=== PATIENT | female | born 1960 | race Asian ===

== ENCOUNTER 2017-05-20 06:36 | Day surgery (SDC) | payer OTHER ==
[~2017-05-20] VITALS: Ht 149.9 cm; Wt 63.8 kg
[~2017-05-20 06:36] MED LIST: DICLOFENAC SODIUM 0.1% 2.5 ML OPHTHALMIC SOLUTION OS ONE; MOXIFLOXACIN HCL 0.5% 3 ML OPHTHALMIC SOLUTION OS ONE; RINGERS SOLUTION,LACTATED 500 ML IV ONE
[2017-05-20] MEDS ORDERED: FentaNYL CITRATE-PF 100 MCG/2 ML VIAL IVP ONE (06:37)
[2017-05-20] MEDS ORDERED: LIDOCAINE HCL/PF 1% 2 ML VIAL IM ONE (06:37)
[2017-05-20] MEDS ORDERED: MIDAZOLAM HCL 2 MG/2 ML VIAL IVP ONE (06:37)
[2017-05-20] MEDS ORDERED: POVIDONE-IODINE 10% 15 ML SOLUTION UD TP ONE (06:37)
[2017-05-20] MEDS ORDERED: DEXAMETHASONE SOD PHOS 4 MG/ML VIAL IVP ONE (06:37)
[2017-05-20] MEDS ORDERED: TETRACAINE HCL VISCOUS 0.5% 5 ML OPHTHALMIC SOLUTION OS ONE (06:37)
[2017-05-20] MEDS ORDERED: HYALURONATE SOD/CHONDROITIN SOD 0.5 ML VIAL IO ONE (06:37)
[2017-05-20] MEDS ORDERED: HYALURONATE SODIUM 12 MG/ML 0.8 ML SYRINGE IO ONE (06:37)
[2017-05-20] MEDS ORDERED: DICLOFENAC SODIUM 0.1% 2.5 ML OPHTHALMIC SOLUTION ONE (06:47)
[2017-05-20] MEDS ORDERED: MOXIFLOXACIN HCL 0.5% 3 ML OPHTHALMIC SOLUTION ONE (06:47)
[2017-05-20] MEDS ORDERED: RINGERS SOLUTION,LACTATED 500 ML IV ONE (06:47)
[2017-05-20] MEDS ORDERED: PHENYLEPHRINE HCL 2.5% 2 ML OPHTHALMIC SOLUTION ONE (06:48)
[2017-05-20] MEDS ORDERED: TROPICAMIDE 1% 2 ML OPHTHALMIC SOLUTION ONE (06:48)
[2017-05-20] MEDS ORDERED: GLIM2 PO (07:08)
[2017-05-20] MEDS ORDERED: DYRE50 PO (07:08)
[2017-05-20] MEDS ORDERED: ASPI81 PO (07:08)
[2017-05-20] MEDS ORDERED: AMLO-511 PO (07:08)
[2017-05-20] MEDS ORDERED: FURO20 PO (07:08)
[2017-05-20] MEDS ORDERED: CARV6 PO (07:08)
[2017-05-20] MEDS: TROPICAMIDE 1% 2 ML OPHTHALMIC SOLUTION OS SCH ×2 (07:29→07:36)
[2017-05-20] MEDS: PHENYLEPHRINE HCL 2.5% 2 ML OPHTHALMIC SOLUTION OS SCH ×2 (07:30→07:36)
[2017-05-20 07:43] LABS: GLUCOSE,POINT OF CARE 356 MG/DL (70-110)
== END 2017-05-20 10:05 | disposition home or self-care (01) ==
LOC: SURGERY 06:36
PROVIDERS: ATTEND Specialist
DX: E11.36 Type 2 diabetes mellitus with diabetic cataract (principal); H25.012 Cortical age-related cataract, left eye; I10 Essential (primary) hypertension; Z79.4 Long term (current) use of insulin; Z86.73 Personal history of transient ischemic attack (TIA), and cerebral infarction without residual deficits
CPT/HCPCS: 66984; 82962; 93005; C1780; J1100; J2250; J3010; J3490 ×2; J7120

== ENCOUNTER 2017-07-08 06:33 | Day surgery (SDC) | payer OTHER ==
[~2017-07-08] VITALS: Ht 152.4 cm; Wt 67.3 kg
[~2017-07-08 06:33] MED LIST changes: +AMLO-511 PO; +ASPI81 PO; +CARV6 PO; -DICLOFENAC SODIUM 0.1% 2.5 ML OPHTHALMIC SOLUTION OS ONE; +DYRE50 PO; +FURO20 PO; +GLIM2 PO; -MOXIFLOXACIN HCL 0.5% 3 ML OPHTHALMIC SOLUTION OS ONE; -RINGERS SOLUTION,LACTATED 500 ML IV ONE
[2017-07-08] MEDS ORDERED: TETRACAINE HCL/PF 0.5% 4 ML OPHTHALMIC SOLUTION OD ONE (06:34)
[2017-07-08] MEDS ORDERED: POVIDONE-IODINE 10% 15 ML SOLUTION UD TP ONE (06:34)
[2017-07-08] MEDS ORDERED: DEXAMETHASONE SOD PHOS 4 MG/ML VIAL IVP ONE (06:34)
[2017-07-08] MEDS ORDERED: HYALURONATE SOD/CHONDROITIN SOD 0.5 ML VIAL IO ONE (06:34)
[2017-07-08] MEDS ORDERED: HYALURONATE SODIUM 12 MG/ML 0.8 ML SYRINGE IO ONE (06:34)
[2017-07-08] MEDS ORDERED: LIDOCAINE HCL/PF 1% 2 ML VIAL INJ ONE (06:34)
[2017-07-08] MEDS ORDERED: RINGERS SOLUTION,LACTATED 500 ML IV ONE (07:00)
[2017-07-08] MEDS ORDERED: MOXIFLOXACIN HCL 0.5% 3 ML OPHTHALMIC SOLUTION OD ONE (07:00)
[2017-07-08] MEDS ORDERED: DICLOFENAC SODIUM 0.1% 2.5 ML OPHTHALMIC SOLUTION OD ONE (07:00)
[2017-07-08] MEDS: TROPICAMIDE 1% 2 ML OPHTHALMIC SOLUTION OD SCH ×2 (07:11→07:19)
[2017-07-08] MEDS: PHENYLEPHRINE HCL 2.5% 2 ML OPHTHALMIC SOLUTION OD SCH ×2 (07:11→07:19)
[2017-07-08 07:12] LABS: GLUCOSE,POINT OF CARE 99 MG/DL (70-110)
[2017-07-08] MEDS ORDERED: FentaNYL CITRATE-PF 100 MCG/2 ML VIAL IVP ONE (12:00)
[2017-07-08] MEDS ORDERED: MIDAZOLAM HCL 2 MG/2 ML VIAL IVP ONE (12:00)
== END 2017-07-08 10:00 | disposition home or self-care (01) ==
LOC: SURGERY 06:33
PROVIDERS: ATTEND Specialist
DX: E11.36 Type 2 diabetes mellitus with diabetic cataract (principal); H25.011 Cortical age-related cataract, right eye; I10 Essential (primary) hypertension; M19.90 Unspecified osteoarthritis, unspecified site; Z98.42 Cataract extraction status, left eye; Z86.73 Personal history of transient ischemic attack (TIA), and cerebral infarction without residual deficits; Z79.4 Long term (current) use of insulin; Z79.82 Long term (current) use of aspirin
CPT/HCPCS: 66984; 82962; C1780; J1100; J2250; J3010; J3490 ×2